=== PATIENT | female | born 1965 | race Caucasian/White ===

== ENCOUNTER 2017-11-05 15:24 | Emergency (ER) | payer MEDICAID ==
--- NOTE | 2017-11-05 16:45 | NUR ---
CALLED - NO ANSWER
--- NOTE | 2017-11-05 16:55 | NUR ---
Patient left without being seen by ER Physician
== END 2017-11-05 16:56 | disposition left against medical advice (07) ==
LOC: ER 15:25
DX: Z53.21 Procedure and treatment not carried out due to patient leaving prior to being seen by health care provider (principal)

== ENCOUNTER 2017-11-06 10:03 | Emergency (ER) | payer MEDICAID ==
[~2017-11-06] VITALS: Ht 165.1 cm; Wt 63.5 kg
[2017-11-06 11:40] LABS: BASOPHILS % (AUTO) 0.7 % (0.0-2.0); EOSINOPHILS # (AUTO) 0.2 /CMM (0.0-0.7); EOSINOPHILS % (AUTO) 3.1 % (0.0-6.0); HEMATOCRIT 30 % (33-45); HEMOGLOBIN 10.3 g/dL (11.5-14.8); LYMPHOCYTES # (AUTO) 1.3 /CMM (0.8-4.8); LYMPHOCYTES % (AUTO) 19.6 % (20.0-44.0); MEAN CORPUSCULAR HEMOGLOBIN 26 PG (26.0-33.0); MEAN CORPUSCULAR HGB CONC 34 g/dl (31.0-36.0); MEAN CORPUSCULAR VOLUME 78 fL (82-100); MONOCYTES # (AUTO) 0.4 /CMM (0.1-1.30); MONOCYTES % (AUTO) 6.5 % (2.0-12.0); NEUTROPHILS # (AUTO) 4.6 /CMM (1.8-8.9); NEUTROPHILS % (AUTO) 70.1 % (43.0-81.0); PLATELET COUNT (AUTO) 336 /CMM (150-450); RDW COEFFICIENT OF VARIATION 14.2 (11.5-15.0); RED BLOOD CELL COUNT(AUTO) 3.91 MIL/uL (4.0-5.2); WHITE BLOOD COUNT (AUTO) 6.5 K/uL (4.3-11.0)
[2017-11-06 11:47] LABS: CALCIUM, SERUM 8.8 mg/dL (8.5-10.1); CREATININE 0.6 mg/dL (0.6-1.3); POTASSIUM 4.5 mmol/L (3.5-5.1)
[2017-11-06 11:53] LABS: ALBUMIN 2.9 g/dL (3.4-5.0); BILIRUBIN,TOTAL 0.3 mg/dL (0.2-1.0); TOTAL PROTEIN, SERUM 6.5 g/dL (6.4-8.2)
[2017-11-06 12:17] LABS: APPEARANCE,URINE CLEAR (CLEAR); BILIRUBIN,URINE NEGATIVE (NEGATIVE); BLOOD, URINE NEGATIVE Ery/uL (NEGATIVE); COLOR,URINE YELLOW (YELLOW); KETONES,URINE NEGATIVE (NEGATIVE); LEUKOCYTE ESTERASE ,URINE NEGATIVE (NEGATIVE); NITRITE, URINE NEGATIVE (NEGATIVE); PROTEIN,URINE NEGATIVE (NEGATIVE); UGLUCOSE NEGATIVE (NEGATIVE); UROBILINOGEN,URINE 0.2 EU/dL (0.2)
[2017-11-06 12:36] VITALS: BP 103/70
--- NOTE | 2017-11-06 12:36 | NUR ---
Patient discharged to home in stable condition. Written and verbal after care instructions given. Patient verbalizes understanding of instruction.
== END 2017-11-06 12:37 | disposition home or self-care (01) ==
LOC: ER 10:05
DX: E46 Unspecified protein-calorie malnutrition (principal); Z85.3 Personal history of malignant neoplasm of breast; Z98.84 Bariatric surgery status; Z90.11 Acquired absence of right breast and nipple
CPT/HCPCS: 36415; 71045; 80048; 80076; 81001; 85025; 99285; A4606; Z7610; 81000-TC

== ENCOUNTER 2017-11-14 18:17 | Emergency (ER) | payer MEDICAID ==
[~2017-11-14] VITALS: Ht 165.1 cm; Wt 66.7 kg
[2017-11-14 19:15] VITALS: BP 104/68
== END 2017-11-14 19:56 | disposition home or self-care (01) ==
LOC: ER 18:20
DX: R60.0 Localized edema (principal); E88.09 Other disorders of plasma-protein metabolism, not elsewhere classified; Z85.3 Personal history of malignant neoplasm of breast; Z98.84 Bariatric surgery status; Z90.11 Acquired absence of right breast and nipple
CPT/HCPCS: 99283; A4606; Z7610